=== PATIENT | female | born 1960 | race Two or more races ===

== ENCOUNTER 2024-03-28 19:54 | Emergency (ER) | payer OTHER, MEDICAID ==
[~2024-03-28] VITALS: Ht 170.2 cm; Wt 113.6 kg
[2024-03-28 20:02] VITALS: BP 121/65; PULSE 75; RESP 18; O2SAT 96
[2024-03-28] MEDS ORDERED: SODIUM CHLORIDE 0.9% 2,000 ML IV ONE (20:30)
[2024-03-28] MEDS ORDERED: ONDANSETRON HCL 4 MG/2 ML VIAL IV ONE (20:30)
[2024-03-28 21:34] LABS: Basophils # (auto) 0.1 10 ^3/uL (0-0.2); Basophils % (auto) 0.6 % (0.0-2.0); Eosinophils # (auto) 0.1 10 ^3/uL (0-0.8); Eosinophils % (auto) 0.5 % (0.0-7.0); Hematocrit 41.8 % (36.0-46.0); Hemoglobin 13.5 g/dL (12.2-16.2); Lymphocytes # (auto) 1.3 10 ^3/uL (0.4-5.4); Lymphocytes % (auto) 11.9 % (10.0-50.0); Mean Corpuscular Hemoglobin 30.2 pg (28.0-32.0); Mean Corpuscular Hgb Conc. 32.2 g/dL (32.0-36.0); Mean Corpuscular Volume 93.7 fL (80.0-100.0); Monocytes # (auto) 0.3 10 ^3/uL (0-1.3); Neutrophils # (auto) 8.9 10 ^3/uL (1.6-8.6); Platelet Count (auto) 240 10^3/uL (140-450); Red Blood Cells 4.46 10^6/uL (4.0-5.20); Red Cell Distribution Width 14.7 % (11.8-14.3); White Blood Cell 10.6 10^3/uL (4.4-10.8)
[2024-03-28] MEDS: IOHEXOL 300 MG/ML 100ML BOTTLE IJ ONE (21:56)
[2024-03-28 21:57] LABS: Alanine Aminotransferase 23 U/L (7-40); Albumin 4.5 g/dL (3.2-4.8); Alkaline Phosphatase 103 U/L (46-116); Anion Gap 11 (5-15); Aspartate Aminotransferase 22 U/L (13-40); BUN/Creatinine Ratio 22.9 (10.0-20.0); Carbon Dioxide 22 mmol/L (20-31); Chloride 106 mmol/L (98-107); Lipase 45 U/L (12-53); Sodium 139 mmol/L (136-145)
[2024-03-28 21:59] LABS: Bilirubin, Total 0.2 mg/dL (0.2-1.0); Blood Urea Nitrogen 24 mg/dL (9-23); Calcium 10.5 mg/dL (8.7-10.4); Glucose 154 mg/dL (74-106)
--- NOTE | 2024-03-29 03:27 | ED.PDOC ---
History of Present Illness HPI Comments 63 y/o F, with a Hx of HLD, HTN, UTI's, TBI, kidney stones, and obesity, is BIBA for c/o non-radiating, diffused abdominal pain, nausea, and vomiting, today. Per EMS report, patient is a poor historian and her sister/oracle apex developer called on her behalf, due to sudden and unprovoked onset of abdominal pain and nausea 30x minutes prior to arrival to ED. Upon arrival to ED, patient is stated to vomited 1x. She has no reported hematemesis, diarrhea, constipation, fever, chills, or other associated symptoms or modifiers at this time. On scene and en route, patient was also noted to have had a blood glucose of 122 and vitals stable and within normal limits. Chief Complaint: Abdominal Pain Time Seen by MD: 20:25 Reviewed Notes: Nurses Notes, Teletypesetter Monitor Notes, Medications, Allergies Allergies: Coded Allergies: Penicillins (Verified Allergy, Unknown, 03/28/24) Information Source: Patient, Emergency Med Personnel Mode of Arrival: EMS Severity: Moderate Timing: Minutes Duration: Since onset Prehospital treatment: 12 Lead EKG, Sisal Picker Past Medical History PAST MEDICAL HISTORY: Depression, High Lipids, HTN, Kidney Stones, UTI'S Past Medical History (Other): obesity, TBI Surgical History: Denies all surgeries Family History Family History: Unknown Social History Smoker: Non-Smoker Alcohol: Denies ETOH Use Drugs: Denies Drug Use Lives In: Home, Assisted Care Gastrointestinal: reports: abdominal pain, nausea, vomiting All Other Systems: Reviewed and Negative (negative unless otherwise stated above or in HPI) Physical Exam General Appearance: Moderate Distress, Obese HEENT: Normal ENT Inspection, Pharynx Normal, TMs Normal Neck: Full Range of Motion, Non-Tender, Normal, Normal Inspection Respiratory: Chest Non-Tender, Lungs Clear, No Accessory Muscle Use, No Respiratory Distress, Normal Breath Sounds Cardiovascular: No Edema, No JVD, No Murmur, No Gallop, Normal Peripheral Pulses, Regular Rate/Rhythm Breast Exam: Deferred Gastrointestinal: Diffuse (tenderness ), No Organomegaly, No Pulsatile Mass, Normal Bowel Sounds, Soft, Tenderness (diffused ) Genitalia: Deferred Pelvic: Deferred Rectal: Deferred Extremities: No calf tenderness, Normal capillary refill, Normal inspection, Normal range of motion, Non-tender, No pedal edema Musculoskeletal : Apperance: Normal Neurologic: Alert, gas attendant II-XII nml as Tested, No Motor Deficits, Normal Affect, Normal Mood, No Sensory Deficits Cerebellar Function: Normal Reflexes: Normal Skin: Dry, Normal Color, Warm Lymphatic: No Adenopathy Was a procedure done? Was a procedure done?: No Differential Dx Considerations may include: gastritis, gastroenteritis, viral syndrome, spoiled food, acute abdomen X-Ray, Labs, Meds, VS Vital Signs Date Time Temp Pulse Resp B/P (MAP) Pulse Ox O2 Delivery O2 Flow Rate FiO2 03/28/24 20:02 97.8 75 18 121/65 (83) 96 Lab Test 03/28/24 21:06 Range/Units White Blood Count 10.6 4.4-10.8 10^3/uL Red Blood Count 4.46 4.0-5.20 10^6/uL Hemoglobin 13.5 12.2-16.2 g/dL Hematocrit 41.8 36.0-46.0 % Mean Corpuscular Volume 93.7 80.0-100.0 fL Mean Corpuscular Hemoglobin 30.2 28.0-32.0 pg Mean Corpuscular Hemoglobin Concent 32.2 32.0-36.0 g/dL Red Cell Distribution Width 14.7 H 11.8-14.3 % Platelet Count 240 140-450 10^3/uL Mean Platelet Volume 8.5 6.9-10.8 fL Neutrophils (%) (Auto) 84.0 H 37.0-80.0 % Lymphocytes (%) (Auto) 11.9 10.0-50.0 % Monocytes (%) (Auto) 3.0 0.0-12.0 % Eosinophils (%) (Auto) 0.5 0.0-7.0 % Basophils (%) (Auto) 0.6 0.0-2.0 % Neutrophils # (Auto) 8.9 H 1.6-8.6 10 ^3/uL Lymphocytes # (Auto) 1.3 0.4-5.4 10 ^3/uL Monocytes # (Auto) 0.3 0-1.3 10 ^3/uL Eosinophils # (Auto) 0.1 0-0.8 10 ^3/uL Basophils # (Auto) 0.1 0-0.2 10 ^3/uL Nucleated Red Blood Cells 0.0 % Sodium Level 139 136-145 mmol/L Potassium Level 4.0 3.5-5.1 mmol/L Chloride Level 106 98-107 mmol/L Carbon Dioxide Level 22 20-31 mmol/L Anion Gap 11 5-15 Blood Urea Nitrogen 24 H 9-23 mg/dL Creatinine 1.05 H 0.550-1.02 mg/dL Glomerular Filtration Rate Calc 59 >90 mL/min BUN/Creatinine Ratio 22.9 H 10.0-20.0 Serum Glucose 154 H 74-106 mg/dL Lactic Acid Level 1.2 0.4-2.0 mmol/L Calcium Level 10.5 H 8.7-10.4 mg/dL Total Bilirubin 0.2 0.2-1.0 mg/dL Aspartate Amino Transferase (AST) 22 13-40 U/L Alanine Aminotransferase (ALT) 23 7-40 U/L Alkaline Phosphatase 103 46-116 U/L Total Protein 8.0 5.7-8.2 g/dL Albumin 4.5 3.2-4.8 g/dL Lipase 45 12-53 U/L CBC is normal. BUN is 24 creatinine 1.1. Lipase is 45 The patient eloped. Time of 1ST Reevaluation: 20:55 Reevaluation 1ST: Unchanged Patient Education/Counseling: Diagnosis, Treatment Family Education/Counseling: No Family Present Departure 1 Departure Time of Disposition: 01:00 Impression: Primary Impression: Vomiting Qualified Codes: R11.10 - Vomiting, unspecified Disposition: 07 LEFT AWOL/ELOPED Condition: Guarded Written Prescriptions The patient did not sign out against medical advice. The patient eloped without notifying anyone. Reassessed patient, vital signs stable. Denies any new symptoms. Patient is able to tolerate PO and ambulate/be mobile at their baseline without concern. Risks and benefits of all medications given or prescribed, if any, discussed. All lab work, imaging and diagnostic studies were reviewed by me. The patient was counseled extensively on my clinical impression, diagnosis, expected course of the disease, and plan, including their follow-up care. Will discharge patient. Patient instructed to follow up with Primary Care Physician within 24-48 hours. Strict return precautions given for further exacerbation of symptoms or for new symptoms. The patient was given the opportunity to ask questions and all questions were answered by myself and the nursing/tech staff. Patient is in agreement with the care plan. The patient verbally expressed understanding of the discharge instructions, including the reasons to return to the Emergency Department. Discharged With: Relative Critical Care Note Critical Care Time?: No Stability Stability form required: No Heart Score Heart Score: Heart Score Response (Comments) Value History N/A 0 EKG N/A 0 Age N/A 0 Risk Factors N/A 0 Troponin N/A 0 Total 0 I personally scribed for CHETAN HUSTON MD ([email or web address]) on 03/29/24 at 03:27. Electronically submitted by Rory Richardson ([email or web address]). CHETAN HUSTON MD Mar 29, 2024 03:27
== END 2024-03-28 23:30 | disposition left against medical advice (07) ==
LOC: ER 19:54 → EDBD 19:54 → ER 23:30
DX: R11.10 Vomiting, unspecified (principal); E78.5 Hyperlipidemia, unspecified; I10 Essential (primary) hypertension; Z88.0 Allergy status to penicillin; Z87.442 Personal history of urinary calculi
CPT/HCPCS: 36415; 80053; 83605; 83690; 85025; 99283; Q9967

== ENCOUNTER 2024-06-22 07:33 | Inpatient (IN) | payer OTHER, MEDICAID ==
[~2024-06-22] VITALS: Ht 175.3 cm; Wt 118.0 kg
--- NOTE | 2024-06-22 08:03 | ED.PDOC ---
History of Present Illness HPI Comments 63 year old female presents to the ED with a chief complaint of abnormal labs onset today. Patient's sister states patient had a urine culture done 5 days ago, was told by PCP today due to urine culture results. Sister states patient gets kidney stones and UTI often, has had 11 surgeries to removal kidney stones. PMHx TBI, HTN, HLD, depression. Denies nausea, vomiting, diarrhea, chest pain, shortness of breath, headache, dizziness, fever, chills. No other symptoms or modifying factors present at this time. Time Seen by MD: 07:50 Reviewed Notes: Medications, Allergies Allergies: Coded Allergies: Penicillins (Verified Allergy, Unknown, 03/28/24) Information Source: Patient, Relative (Sibling) Mode of Arrival: Ambulatory Severity: Moderate Timing: Days Duration: Since onset Prehospital treatment: None Past Medical History PAST MEDICAL HISTORY: Depression, High Lipids, HTN, Kidney Stones, UTI'S Past Medical History (Other): TBI Surgical History (Other): LT leg surgery, kidney stones removal Family History Family History: Unknown Social History Smoker: Non-Smoker Alcohol: Denies ETOH Use Drugs: Denies Drug Use Lives In: Home, Assisted Care Constitutional: denies: chills, diaphoresis, fatigue, fever, malaise, sweats, weakness, others EENTM: denies: blurred vision, double vision, ear bleeding, ear discharge, ear drainage, ear pain, ear ringing, eye pain, eye redness, hearing loss, mouth pain, mouth swelling, nasal discharge, nose bleeding, nose congestion, nose pain, photophobia, tearing, throat pain, throat swelling, voice changes, others Respiratory: denies: cough, hemoptysis, orthopnea, SOB at rest, shortness of breath, SOB with excertion, stridor, wheezing, others Cardiovascular: denies: chest pain, dizzy spells, diaphoresis, Dyspnea on exertion, edema, irregular heart beat, left arm pain, lightheadedness, palpitations, PND, syncope, others Gastrointestinal: denies: abdomen distended, abdominal pain, blood streaked bowels, constipated, diarrhea, dysphagia, difficulty swallowing, hematemesis, melena, nausea, poor appetite, poor fluid intake, rectal bleeding, rectal pain, vomiting, others Genitourinary: denies: abnormal vagina bleeding, burning, dyspareunia, dysuria, flank pain, frequency, hematuria, incontinence, pain, , vagina discharge, urgency, others Neurological: denies: dizziness, fainting, headache, left sided numbness, left sided weakness, numbness, paresthesia, pre-existing deficit, right sided numbness, right sided weakness, seizure, speech problems, tingling, tremors, weakness, others Musculoskeletal: denies: back pain, gout, joint pain, joint swelling, muscle pain, muscle stiffness, neck pain, others Integumetry: denies: bruises, change in color, change in hair/nails, dryness, laceration, lesions, lumps, rash, wounds, others Allergic/Immunocompromised: denies: Difficulty Healing, Frequent Infections, H lynne, Itching, others Hematologic/Lymphatic: denies: anemia, blood clots, easy bleeding, easy bruising, swollen glands, others Endocrine: denies: excessive hunger, excessive sweating, excessive thirst, excessive urination, flushing, intolerance to cold, intolerance to heat, unexplained weight gain, unexplained weight loss, others Psychiatric: denies: anxiety, bipolar disorder, depression, hopeless, panic disorder, schizophrenia, sleepless, suicidal, others All Other Systems: Reviewed and Negative Physical Exam General Appearance: Moderate Distress, Obese HEENT: Normal ENT Inspection, Pharynx Normal, TMs Normal Neck: Full Range of Motion, Non-Tender, Normal, Normal Inspection Respiratory: Chest Non-Tender, Lungs Clear, No Accessory Muscle Use, No Respiratory Distress, Normal Breath Sounds Cardiovascular: No Edema, No JVD, No Murmur, No Gallop, Normal Peripheral Pulses, Regular Rate/Rhythm Breast Exam: Deferred Gastrointestinal: No Organomegaly, Non Tender, No Pulsatile Mass, Normal Bowel Sounds, Soft Genitalia: Deferred Pelvic: Deferred Rectal: Deferred Extremities: No calf tenderness, Normal capillary refill, Pedal edema Musculoskeletal : Apperance: Normal Neurologic: automatic blocker II-XII nml as Tested, Motor Weakness, Normal Affect, Normal Mood, No Sensory Deficits, Other (Patient has a traumatic brain injury so is somewhat slow to respond) Cerebellar Function: Unable to Test Reflexes: Normal Skin: Dry, Normal Color, Warm Lymphatic: No Adenopathy Was a procedure done? Was a procedure done?: No Differential Dx Considerations may include: Sepsis, UTI, abdominal pain, cholelithiasis X-Ray, Labs, Meds, VS Vital Signs Date Time Temp Pulse Resp B/P (MAP) Pulse Ox O2 Delivery O2 Flow Rate FiO2 06/22/24 08:00 97.5 60 18 151/85 (107) 97 97.5 Lab Test 06/22/24 09:06 06/22/24 08:21 Range/Units Urine Color Light-yellow Yellow Urine Clarity Turbid H Clear Urine pH 7.0 5.0-9.0 Urine Specific Curtis 1.011 1.001-1.035 Urine Protein 1+ H Negative Urine Ketones Negative Negative Urine Blood 1+ H Negative /uL Urine Nitrite 2+ H Negative Urine Bilirubin Negative Negative Urine Urobilinogen Normal Negative mg/dL Urine Leukocyte Esterase 3+ Negative /uL Urine RBC 15 0 - 4 /hpf Urine WBC Clumps Present None Seen /hpf Urine Microscopic WBC 86 H 0-5 /HPF Urine Squamous Epithelial Cells Few <5 /hpf Urine Bacteria Few H None Seen /hpf Urine Glucose Normal Normal mg/dL White Blood Count 7.5 4.4-10.8 10^3/uL Red Blood Count 4.54 4.0-5.20 10^6/uL Hemoglobin 13.8 12.2-16.2 g/dL Hematocrit 41.5 36.0-46.0 % Mean Corpuscular Volume 91.6 80.0-100.0 fL Mean Corpuscular Hemoglobin 30.3 28.0-32.0 pg Mean Corpuscular Hemoglobin Concent 33.1 32.0-36.0 g/dL Red Cell Distribution Width 13.9 11.8-14.3 % Platelet Count 257 140-450 10^3/uL Mean Platelet Volume 8.1 6.9-10.8 fL Neutrophils (%) (Auto) 63.3 37.0-80.0 % Lymphocytes (%) (Auto) 25.7 10.0-50.0 % Monocytes (%) (Auto) 7.0 0.0-12.0 % Eosinophils (%) (Auto) 2.9 0.0-7.0 % Basophils (%) (Auto) 1.1 0.0-2.0 % Neutrophils # (Auto) 4.7 1.6-8.6 10 ^3/uL Lymphocytes # (Auto) 1.9 0.4-5.4 10 ^3/uL Monocytes # (Auto) 0.5 0-1.3 10 ^3/uL Eosinophils # (Auto) 0.2 0-0.8 10 ^3/uL Basophils # (Auto) 0.1 0-0.2 10 ^3/uL Nucleated Red Blood Cells 0.1 % Sodium Level 141 136-145 mmol/L Potassium Level 4.4 3.5-5.1 mmol/L Chloride Level 107 98-107 mmol/L Carbon Dioxide Level 24 20-31 mmol/L Anion Gap 10 5-15 Blood Urea Nitrogen 13 9-23 mg/dL Creatinine 0.87 0.550-1.02 mg/dL Glomerular Filtration Rate Calc 74 >90 mL/min BUN/Creatinine Ratio 14.9 10.0-20.0 Serum Glucose 73 L 74-106 mg/dL Calcium Level 9.9 8.7-10.4 mg/dL PROCEDURE(s): ABPL - CT AB PEL WO CON-NO ORAL OR IV REASON: pain ORDER NUMBER(s): [id number], ACCESSION NUMBER(s): [id number] IMPRESSION: 1. Bilateral renal calculi. No hydronephrosis or obstructing calculi visualized. Mild stranding along the courses of the ureters bilaterally, may be sequela of inflammation or infection. Correlate with clinical findings. 2. Bilateral renal cysts. 3. Supraumbilical ventral hernia containing a loop of small bowel without evidence of obstruction. 4. Nonspecific nondilated fluid-filled small bowel loops. Findings may be seen with ileus or enteritis in the appropriate clinical setting. No small bowel obstruction. 5. Scattered colonic diverticula without adjacent inflammatory changes to suggest diverticulitis. 6. Cholelithiasis with mildly distended gallbladder. Correlate with clinical findings. If clinically indicated, ultrasound could be obtained. 7. Additional findings as described above The patient had an IV Hep-Lock established The patient was given normal saline at a 500 cc bolus. The patient was also given Levaquin IV piggyback for the UTI that was discovered The patient's CBC shows no sign of any elevated white blood cell count The chemistry panel is within normal limits The patient was being admitted to the hospitalist We did discuss the findings with the patient was family secondary to her mental status and the patient is being admitted Images Reviewed?: Images reviewed and evaluated by me Time of 1ST Reevaluation: 08:20 Reevaluation 1ST: Unchanged Patient Education/Counseling: Diagnosis, Treatment, Prognosis Family Education/Counseling: Diagnosis, Treatment, Prognosis Additional Information The following tests were ordered, and results were reviewed by me: CT ABD PEL WO CON, UA, CBC, BMP Additional Information was gathered from interviewing the following independent historians: sisters I reviewed and agreed with the following test results read by other providers: CT ABD PEL WO CON, I discussed treatment and results with medical personnel and: patient, sisters Comprehensive systems review obtained and negative except for what is stated in the HPI. Departure 1 Departure Time of Disposition: 09:54 Impression: Primary Impression: Nephrolithiasis Additional Impressions: UTI (urinary tract infection) Qualified Codes: N30.01 - Acute cystitis with hematuria Cholelithiasis Qualified Codes: K80.20 - Calculus of gallbladder without cholecystitis without obstruction Acute abdominal pain Disposition: ADMITTED INPATIENT Admit to: Med Surg Condition: Fair Critical Care Note Critical Care Time?: No Stability Stability form required: Yes Unstable for transfer: ED Physician Assesment (Clinical assesment) Heart Score Heart Score: Heart Score Response (Comments) Value History N/A 0 EKG N/A 0 Age N/A 0 Risk Factors N/A 0 Troponin N/A 0 Total 0 I personally scribed for PALMER CONN MD ([email or web address]) on 06/22/24 at 08:03. Electronically submitted by Ruby Orozco ([email or web address]). I personally scribed for PALMER CONN MD ([email or web address]) on 06/22/24 at 08:12. Electronically submitted by Ruby Orozco ([email or web address]). I personally scribed for PALMER CONN MD ([email or web address]) on 06/22/24 at 09:43. Electronically submitted by Ruby Orozco ([email or web address]). PALMER CONN MD Jun 22, 2024 08:03
[2024-06-22 08:32] LABS: Basophils # (auto) 0.1 10 ^3/uL (0-0.2); Basophils % (auto) 1.1 % (0.0-2.0); Eosinophils # (auto) 0.2 10 ^3/uL (0-0.8); Eosinophils % (auto) 2.9 % (0.0-7.0); Hematocrit 41.5 % (36.0-46.0); Hemoglobin 13.8 g/dL (12.2-16.2); Lymphocytes # (auto) 1.9 10 ^3/uL (0.4-5.4); Lymphocytes % (auto) 25.7 % (10.0-50.0); Mean Corpuscular Hemoglobin 30.3 pg (28.0-32.0); Mean Corpuscular Hgb Conc. 33.1 g/dL (32.0-36.0); Mean Corpuscular Volume 91.6 fL (80.0-100.0); Monocytes # (auto) 0.5 10 ^3/uL (0-1.3); Neutrophils # (auto) 4.7 10 ^3/uL (1.6-8.6); Neutrophils % (auto) 63.3 % (37.0-80.0); Nucleated Red Blood Cells % 0.1 %; Platelet Count (auto) 257 10^3/uL (140-450); Red Blood Cells 4.54 10^6/uL (4.0-5.20); Red Cell Distribution Width 13.9 % (11.8-14.3); White Blood Cell 7.5 10^3/uL (4.4-10.8)
[2024-06-22 08:46] LABS: BUN/Creatinine Ratio 14.9 (10.0-20.0); Blood Urea Nitrogen 13 mg/dL (9-23)
[2024-06-22 08:47] LABS: Chloride 107 mmol/L (98-107); Potassium 4.4 mmol/L (3.5-5.1); Sodium 141 mmol/L (136-145)
[2024-06-22 08:49] LABS: Anion Gap 10 (5-15)
[2024-06-22 08:53] LABS: Calcium 9.9 mg/dL (8.7-10.4); Glucose 73 mg/dL (74-106)
[2024-06-22 08:54] LABS: Carbon Dioxide 24 mmol/L (20-31)
--- NOTE | 2024-06-22 09:01 | DVH ---
CLINICAL INFORMATION: Abdominal pain. History of renal stones. TECHNIQUE: Axial CT images of the abdomen and pelvis were obtained without IV contrast. Coronal and s agittal reformatted images were obtained, reviewed, and stored. Evaluation of the parenchymal organs is limited without IV contrast. Evaluation of the bowel and mesentery is limited without oral contras t. All CT scans at this medical facility are performed using dose modulation techniques as appropriat e to a performed exam including the following: Automated exposure control was utilized; adjustment of the MA and/or KV according to patient size; and use of iterative reconstruction technique. CTDIvol = 24.77 mGy DLP = 1276.16 mGy-cm COMPARISON: None FINDINGS: Lung bases: Lung bases are clear. Liver: Grossly unremarkable in its noncontrast enhanced appearance. No abnormal density or focal lesi on identified. Biliary: Mildly distended gallbladder. Very small 3 mm calcified gallstone near the gallbladder neck. No biliary ductal dilatation. Spleen: Unremarkable. Pancreas: Grossly unremarkable in its noncontrast enhanced appearance. Adrenal glands: Unremarkable. No mass. Kidneys: No hydronephrosis. Multiple bilateral nonobstructing renal calculi. No obstructing calculi. There are bilateral renal cysts. Very mild stranding along the courses of both ureters, may be sequel a of inflammation or infectious etiology. Aorta/Vascular: No aneurysm or significant calcification. Retroperitoneum: No mass or lymphadenopathy. Bowel/mesentery: No small bowel obstruction. Nonspecific nondilated fluid-filled small bowel loops. A ppendix is visualized and appears unremarkable. Scattered colonic diverticula without adjacent infla mmatory changes to suggest diverticulitis. Postsurgical changes of prior gastric bypass. Pelvic organs: Focal calcification along the right side of the uterus, posteriorly, likely calcified fibroid measuring up to 1.8 cm. Bladder: Grossly unremarkable. Abdominal wall: Ventral hernia just above the level of the umbilicus just to the right of midline con taining a loop of small bowel without evidence for obstruction. Bones: No acute fracture or suspicious intraosseous lesion. IMPRESSION: 1. Bilateral renal calculi. No hydronephrosis or obstructing calculi visualized. Mild stranding along the courses of the ureters bilaterally, may be sequela of inflammation or infection. Correlate with clinical findings. 2. Bilateral renal cysts. 3. Supraumbilical ventral hernia containing a loop of small bowel without evidence of obstruction. 4. Nonspecific nondilated fluid-filled small bowel loops. Findings may be seen with ileus or enteriti s in the appropriate clinical setting. No small bowel obstruction. 5. Scattered colonic diverticula without adjacent inflammatory changes to suggest diverticulitis. 6. Cholelithiasis with mildly distended gallbladder. Correlate with clinical findings. If clinically indicated, ultrasound could be obtained. 7. Additional findings as described above
[2024-06-22 09:26] LABS: Urine Bacteria FEW /hpf (None Seen); Urine Blood 1+ /uL (Negative); Urine Clarity Turbid (Clear); Urine Color Light-Yellow (Yellow); Urine Protein, UAD 1+ (Negative); Urine Specific Gravity 1.011 (1.001-1.035); Urine Squamous Epithelial Cell FEW /hpf (<5); Urine Urobilinogen Normal (Negative); Urine WBC 86 /HPF (0-5); Urine WBC Clumps PRESENT /hpf (None Seen)
[2024-06-22 10:38] VITALS: PULSE 91; RESP 18; O2SAT 99
[2024-06-22] MEDS: levoFLOXacin 500MG 100 ML IV ONE (10:48)
[2024-06-22] MEDS: SODIUM CHLORIDE 0.9% 500 ML IV ONE (10:48)
[2024-06-22] MEDS ORDERED: NITROGLYCERIN 0.4 MG SL TAB SL PRN (16:45)
[2024-06-22] MEDS ORDERED: MORPHINE SULFATE INJ 2 MG/ml SYRG IV PRN (16:45)
--- NOTE | 2024-06-22 17:11 | DVHHPRES ---
History of Present Illness Resident Creating Document: ALEXANDR HAYWARD RESIDENT History of Present Illness PATIENT IS A 63-YEAR-OLD FEMALE WITH PAST MEDICAL HISTORY OF HYPERTENSION, HYPERTENSION, HYPERLIPIDEMIA, TRAUMATIC BRAIN INJURY, DEPRESSION, MULTIPLE UTIS, RENAL CALCULI WHO PRESENTED WITH THE HOSPITAL AFTER PRIMARY CARE PHYSICIAN SUGGESTED PATIENT BROUGHT TO THE HOSPITAL GIVEN ABNORMAL URINARY CULTURE AND URINALYSIS RESULTS. ALL INFORMATION OBTAINED FROM SISTER/CAREGIVER GIVEN PATIENT HAS SHORT-TERM MEMORY LOSS AFTER TRAUMATIC BRAIN INJURY. PATIENT DOES NOT HAVE ANY OCCLUSION BRAIN GOING FEVER, CHILLS, ABDOMINAL PAIN, CHEST PAIN, SHORTNESS OF BREATH, ANY OTHER SYMPTOM. PATIENT IS WHEELCHAIR-BOUND , CAN AMBULATE WITH CANE. NO ANY OTHER NEW COMPLAINTS. PATIENT WILL BE ADMITTED TO THE HOSPITAL FOR FURTHER EVALUATION OF URINARY TRACT INFECTION AND MANAGEMENT. PAST MEDICAL HISTORY: MULTIPLE RENAL CALCULI, UTIS, HYPERTENSION, HYPERLIPIDEMIA, TRAUMATIC BRAIN INJURY, DEPRESSION SURGERY: MULTIPLE RENAL CALCULI SURGERY PER PATIENT, STATUS POST NEPHROSTOMY, HISTORY OF CHRONIC [place] USE, GASTRIC BYPASS, , TUBAL LIGATION ALLERGY: PENICILLIN PERSONALLY: PATIENT LIVES WITH SISTER, SISTER IS CAREGIVER. Review of Systems Constitutional: No: Fever, Chills, Sweats, Weakness, Malaise, Other Eyes: No: Pain, Vision change, Conjunctivae inflammation, Eyelid inflammation, Other, Redness ENT: No: Ear pain, Ear discharge, Nose pain, Nose discharge, Nose congestion, Mouth pain, Mouth swelling, Throat pain, Throat swelling, Other Respiratory: No: Cough, Dry, Shortness of breath, SOB with excertion, Wheezing, Hemoptysis, Pleuritic Pain, Sputum, Wheezing, Other Cardiovascular: No: Chest Pain, Palpitations, Orthopnea, Paroxysmal Noc. Dyspnea, Edema, Lt Headedness, Other Gastrointestinal: No: Nausea, Vomiting, Abdominal Pain, Diarrhea, Constipation, Melena, Hematochezia, Other Musculoskeletal: No: other, neck pain, shoulder pain, arm pain, back pain, hand pain, leg pain, foot pain Skin: No: Rash, Lesions, Jaundice, Bruising, Other Neurological: No: Weakness, Numbness, Incoordination, Change in speech, Confusion, Seizures, Other Allergies: Coded Allergies: Penicillins (Verified Allergy, Unknown, 03/28/24) Medications Current Medications Medications Dose Ordered Sig/Monisha Route Start Time Stop Time Status Last Admin Dose Admin Nitroglycerin 0.4 mg Q5MINP PRN SL 4/29/25 16:45 Morphine Sulfate 2 mg Q30M PRN IV 06/22/24 16:45 Enoxaparin Sodium 40 mg DAILY SC 06/23/24 10:00 Sertraline HCl 150 mg DAILY PO 06/23/24 10:00 Metoprolol Tartrate 12.5 mg BID PO 06/22/24 22:00 Quetiapine Fumarate 25 mg BID PO 06/22/24 22:00 Atorvastatin Calcium 20 mg HS PO 06/22/24 22:00 Amlodipine Besylate 10 mg DAILY PO 06/23/24 10:00 Exam Vital Signs Vital Signs Date Time Temp Pulse Resp B/P (MAP) Pulse Ox O2 Delivery O2 Flow Rate FiO2 06/22/24 15:54 73 18 113/62 (79) 96 06/22/24 10:38 Room Air* 0 21 06/22/24 08:00 97.5 97.5 General Appearance: Alert, Cooperative, No acute distress HEENT: PERRLA, Mucous membr. moist/pink Respiratory: Clear to auscultation, Normal air movement Cardiovascular: Normal S1, Normal S2 Abdominal: Normal bowel sounds, Soft, No tenderness Extremities: No clubbing, No cyanosis, No edema Skin: No rashes, No breakdown, No significant lesion Neuro: Normal gait, Normal speech, Strength at 5/5 X4 ext Labs/Xrays Labs Test 06/22/24 09:06 06/22/24 08:21 Range/Units Urine Color Light-yellow Yellow Urine Clarity Turbid H Clear Urine pH 7.0 5.0-9.0 Urine Specific [place] 1.011 1.001-1.035 Urine Protein 1+ H Negative Urine Ketones Negative Negative Urine Blood 1+ H Negative /uL Urine Nitrite 2+ H Negative Urine Bilirubin Negative Negative Urine Urobilinogen Normal Negative mg/dL Urine Leukocyte Esterase 3+ Negative /uL Urine RBC 15 0 - 4 /hpf Urine WBC Clumps Present None Seen /hpf Urine Microscopic WBC 86 H 0-5 /HPF Urine Squamous Epithelial Cells Few <5 /hpf Urine Bacteria Few H None Seen /hpf Urine Glucose Normal Normal mg/dL White Blood Count 7.5 4.4-10.8 10^3/uL Red Blood Count 4.54 4.0-5.20 10^6/uL Hemoglobin 13.8 12.2-16.2 g/dL Hematocrit 41.5 36.0-46.0 % Mean Corpuscular Volume 91.6 80.0-100.0 fL Mean Corpuscular Hemoglobin 30.3 28.0-32.0 pg Mean Corpuscular Hemoglobin Concent 33.1 32.0-36.0 g/dL Red Cell Distribution Width 13.9 11.8-14.3 % Platelet Count 257 140-450 10^3/uL Mean Platelet Volume 8.1 6.9-10.8 fL Neutrophils (%) (Auto) 63.3 37.0-80.0 % Lymphocytes (%) (Auto) 25.7 10.0-50.0 % Monocytes (%) (Auto) 7.0 0.0-12.0 % Eosinophils (%) (Auto) 2.9 0.0-7.0 % Basophils (%) (Auto) 1.1 0.0-2.0 % Neutrophils # (Auto) 4.7 1.6-8.6 10 ^3/uL Lymphocytes # (Auto) 1.9 0.4-5.4 10 ^3/uL Monocytes # (Auto) 0.5 0-1.3 10 ^3/uL Eosinophils # (Auto) 0.2 0-0.8 10 ^3/uL Basophils # (Auto) 0.1 0-0.2 10 ^3/uL Nucleated Red Blood Cells 0.1 % Sodium Level 141 136-145 mmol/L Potassium Level 4.4 3.5-5.1 mmol/L Chloride Level 107 98-107 mmol/L Carbon Dioxide Level 24 20-31 mmol/L Anion Gap 10 5-15 Blood Urea Nitrogen 13 9-23 mg/dL Creatinine 0.87 0.550-1.02 mg/dL Glomerular Filtration Rate Calc 74 >90 mL/min BUN/Creatinine Ratio 14.9 10.0-20.0 Serum Glucose 73 L 74-106 mg/dL Calcium Level 9.9 8.7-10.4 mg/dL Assessment/Plan Assessment/Plan ACUTE CYSTITIS MULTIPLE BILATERAL RENAL CALCULI DIVERTICULOSIS WITHOUT DIVERTICULITIS CHOLELITHIASIS ? RULED OUT ACUTE CHOLECYSTITIS RENAL CYST HYPERTENSION HYPERLIPIDEMIA DEPRESSION RIGHT-SIDED RESIDUAL WEAKNESS HISTORY OF TRAUMATIC BRAIN INJURY LACTOSE INTOLERANCE PLAN/RECOMMENDATION -CONTINUED IV ANTIBIOTIC LEVOFLOXACIN (PENICILLIN ALLERGY), IV FLUID NORMAL SALINE 100 ML/HOUR. -PENDING URINE CULTURE AND BLOOD CULTURE. -CHECK LIVER ULTRASOUND -EKG TO CHECK QTC GIVEN PATIENT IS RECEIVING LEVOFLOXACIN -CT ABDOMEN PELVIS REVIEWED: MULTIPLE BILATERAL RENAL CALCULI, CHOLELITHIASIS, DIVERTICULOSIS, ADENOSIS -RESUME HOME MEDICATION: AMLODIPINE, METOPROLOL, QUETIAPINE, SERTRALINE, ATORVASTATIN -WHEELCHAIR-BOUND, CAN AMBULATE WITH CANE. WE WILL NEED BEDSIDE COMMODE -CARDIAC DIET -DVT PROPHYLAXIS WITH LOVENOX -PUD PROPHYLAXIS WITH PROTONIX GOALS OF CARE DISCUSSED FOR 20 MINUTES WITH PATIENT AND HER SISTER/CAREGIVER, FULL CODE STATUS. PLAN DISCUSSED WITH DR ALVES Plan discussed with: Patient, Other (SISTER IMTIAZ) My Orders Orders - ALEXANDR HAYWARD RESIDENT Procedure Category Date Status Time Admit ADMIT 06/22/24 Transmitted 16:43 Code Status CODE 06/22/24 Transmitted 16:43 Vital Signs [facility] 06/22/24 In Process 16:43 Review Orders With [facility] 06/22/24 In Process Adm. 16:43 Notify Md Of Changes [facility] 06/22/24 In Process From Base 16:43 Advance Directive [facility] 06/22/24 In Process 16:43 Patient Condition ORDERS 06/22/24 Transmitted 16:43 Allergies [facility] 06/22/24 In Process 16:43 Nitroglycerin PHA 06/22/24 In Process Sublingual (Ntrostat 16:45 Morphine Sulfate PHA 06/22/24 In Process Injection 16:45 Sodium Chloride 0.9% PHA 06/22/24 In Process 16:45 Levofloxacin 500mg PHA 06/23/24 Logged (Levaquin 500mg/ 100m 10:00 Urine Bacterial GUSTABO 06/22/24 Logged Culture 16:43 Enoxaparin Sodium PHA 06/23/24 In Process (Lovenox) 10:00 Sertraline Hcl PHA 06/23/24 In Process (Zoloft) 10:00 Metoprolol Tartrate PHA 06/22/24 In Process Tablet (Lopressor Ta 22:00 Quetiapine Fumarate PHA 06/22/24 In Process Tablet (Seroquel Tab 22:00 Atorvastatin (Lipitor) PHA 06/22/24 In Process 22:00 Bedside Commode [facility] 06/22/24 In Process 16:50 Amlodipine Tablet PHA 06/23/24 In Process (Norvasc Tablet) 10:00 Addendum Addendum Addendum I was physically present for the rangel portions of the service provided to patient by THE RESIDENT. I have reviewed the documentation, discussed the case with resident and agree with the resident's documentation except as noted. Also the patient's clinical case was discussed with the patient's nurse. This medical document was created using an electronic medical record system with computerized dictation system. Although this document has been carefully reviewed, there might still be some phonetic and typographical errors. These areas are purely typographical due to imperfections of the software programs, and do not reflect any compromise in the patient's medical care. Late signature. Date of Service: Jun 22, 2024 Billing Provider: GAVIN ALVES MD Common Visit Codes: 30229-TEBPVZS INP/OBS CARE (HIGH) Secondary Visit Codes: 87503-[id number] CARE PLAN 30 MINUTES (20 minutes) ALEXANDR HAYWARD RESIDENT Jun 22, 2024 17:11 GAVIN ALVES MD Jun 23, 2024 10:12
[2024-06-22] MEDS: ENOXAPARIN SOD 40 MG/0.4 ML SYRINGE SC ONE (17:18)
[2024-06-22 21:00] VITALS: BP 101/81; PULSE 70; RESP 18; TEMP 98.6; O2SAT 98
--- NOTE | 2024-06-22 21:02 | DVH ---
INDICATION: distented gallbladder, sludge TECHNIQUE: US LIVER Multiple real-time sonographic images of the abdomen were obtained. COMPARISON: None FINDINGS: Increased echogenicity of the hepatic parenchyma suggesting steatosis. The liver measures 17.1 cm. No intrahepatic biliary ductal dilatation is noted. The gallbladder wall measures 0.25 cm and is unremarkable. Stones and sludge are noted in the gallb ladder. The common duct measures 0.93 cm cm and is unremarkable. No pericholecystic fluid is noted. Negative sonographic avalos's sign. The right kidney measures 12.6 cm. No hydronephrosis. 2 nonobstructing calculi noted in the right ki dney. 1 calculus measures 1.5 cm the 2nd calculus measures 1.4 cm. There is also a 2.8 cm cyst in the right kidney. The pancreas is not well visualized due to obscuration from bowel gas. IMPRESSION: 1. Stones and sludge noted in the gallbladder. 2. Liver measures 17.1 cm in length with findings suggesting steatosis. 3. 2 nonobstructing calculi right kidney. 1 cyst in the right kidney.
[2024-06-22] MEDS: SODIUM CHLORIDE 0.9% 1,000 ML IV ONE (21:09)
[2024-06-22 21:30] VITALS: BP 101/81; PULSE 74; RESP 18; RESP 20; TEMP 98.7; O2SAT 95
[2024-06-22] MEDS: METOPROLOL TARTRATE 25 MG TAB PO SCH (22:04)
[2024-06-22] MEDS: ATORVASTATIN 20 MG TAB PO SCH (22:05)
[2024-06-22] MEDS: QUEtiapine FUMARATE 25 MG TAB PO SCH (22:05)
[2024-06-22] MEDS ORDERED: ATOR20TA50 PO (22:59)
[2024-06-22] MEDS ORDERED: MULT-1018 PO (22:59)
[2024-06-22] MEDS ORDERED: CHOL20007 PO (22:59)
[2024-06-22] MEDS ORDERED: [UNRECOGNIZED DRUG - CODE] PO (22:59)
[2024-06-22] MEDS ORDERED: POTA-36 PO (22:59)
[2024-06-22] MEDS ORDERED: SIME80CH49 PO (22:59)
[2024-06-22] MEDS ORDERED: SERT-160 PO (22:59)
[2024-06-22] MEDS ORDERED: QUET50TA PO (22:59)
[2024-06-22] MEDS ORDERED: OMEG-109 PO (22:59)
[2024-06-22] MEDS ORDERED: AMLO1TAB23 PO (22:59)
[2024-06-22] MEDS ORDERED: METO25TA93 PO (22:59)
[2024-06-23] VITALS (7 sets, daily range): BP systolic 106–131; BP diastolic 34–80; PULSE 60–73; RESP 16–18; TEMP 97.7–98.7; O2SAT 93–99
[2024-06-23 10:41] LABS: Basophils # (auto) 0.1 10 ^3/uL (0-0.2); Eosinophils # (auto) 0.1 10 ^3/uL (0-0.8); Hematocrit 45.4 % (36.0-46.0); Hemoglobin 14.9 g/dL (12.2-16.2); Lymphocytes # (auto) 1.6 10 ^3/uL (0.4-5.4); Lymphocytes % (auto) 30.2 % (10.0-50.0); Mean Corpuscular Hemoglobin 30.2 pg (28.0-32.0); Mean Corpuscular Hgb Conc. 32.8 g/dL (32.0-36.0); Mean Corpuscular Volume 92.3 fL (80.0-100.0); Monocytes # (auto) 0.3 10 ^3/uL (0-1.3); Monocytes % (auto) 6.5 % (0.0-12.0); Neutrophils # (auto) 3.2 10 ^3/uL (1.6-8.6); Neutrophils % (auto) 60.3 % (37.0-80.0); Nucleated Red Blood Cells % 0.2 %; Platelet Count (auto) 253 10^3/uL (140-450); Red Blood Cells 4.92 10^6/uL (4.0-5.20); Red Cell Distribution Width 13.9 % (11.8-14.3); White Blood Cell 5.3 10^3/uL (4.4-10.8)
[2024-06-23] MEDS: amLODIPine BESYLATE 5 MG TAB PO SCH (10:43)
[2024-06-23] MEDS: SERTRALINE HCL 50 MG TAB PO SCH (10:44)
[2024-06-23] MEDS: ENOXAPARIN SOD 40 MG/0.4 ML SYRINGE SC SCH (10:45)
[2024-06-23] MEDS: levoFLOXacin 500MG 100 ML IV ONE (12:53)
--- NOTE | 2024-06-23 14:04 | DVHPNRES ---
Progress Note Date Seen: Jun 23, 2024 Resident Creating Document: ALEXANDR HAYWARD RESIDENT Medical Necessity Reason Pt with a Central, PICC or Fol: No Subjective Review of Systems PATIENT IS A 63-YEAR-OLD FEMALE WITH PAST MEDICAL HISTORY OF HYPERTENSION, HYPERTENSION, HYPERLIPIDEMIA, TRAUMATIC BRAIN INJURY, DEPRESSION, MULTIPLE UTIS, RENAL CALCULI WHO PRESENTED WITH THE HOSPITAL AFTER PRIMARY CARE PHYSICIAN SUGGESTED PATIENT BROUGHT TO THE HOSPITAL GIVEN ABNORMAL URINARY CULTURE AND URINALYSIS RESULTS. ALL INFORMATION OBTAINED FROM SISTER/CAREGIVER GIVEN PATIENT HAS SHORT-TERM MEMORY LOSS AFTER TRAUMATIC BRAIN INJURY. PATIENT DOES NOT HAVE ANY OCCLUSION BRAIN GOING FEVER, CHILLS, ABDOMINAL PAIN, CHEST PAIN, SHORTNESS OF BREATH, ANY OTHER SYMPTOM. PATIENT IS WHEELCHAIR-BOUND , CAN AMBULATE WITH CANE. NO ANY OTHER NEW COMPLAINTS. PATIENT WILL BE ADMITTED TO THE HOSPITAL FOR FURTHER EVALUATION OF URINARY TRACT INFECTION AND MANAGEMENT. PAST MEDICAL HISTORY: MULTIPLE RENAL CALCULI, UTIS, HYPERTENSION, HYPERLIPIDEMIA, TRAUMATIC BRAIN INJURY, DEPRESSION SURGERY: MULTIPLE RENAL CALCULI SURGERY PER PATIENT, STATUS POST NEPHROSTOMY, HISTORY OF CHRONIC [place] USE, GASTRIC BYPASS, , TUBAL LIGATION ALLERGY: PENICILLIN PERSONALLY: PATIENT LIVES WITH SISTER, SISTER IS CAREGIVER. Patient seen and examined at bedside. No new complaints at this point. feeling better compare to yesterday ROS Eyes: No Pain, No Vision change, No Conjunctivae inflammation, No Eyelid inflammation, No Other, No Redness ENT: No Ear pain, No Ear discharge, No Nose pain, No Nose discharge, No Nose congestion, No Mouth pain, No Mouth swelling, No Throat pain, No Throat swelling, No Other Cardiovascular: No Chest Pain, No Palpitations, No Orthopnea, No Paroxysmal Noc. Dyspnea, No Edema, No Lt Headedness, No Other Respiratory: No Cough, No Dry, No Shortness of breath, No SOB with excertion, No Wheezing, No Hemoptysis, No Pleuritic Pain, No Sputum, No Other Gastrointestinal: No Nausea, No Vomiting, No Abdominal Pain, No Diarrhea, No Constipation, No Melena, No Hematochezia, No Other Genitourinary: No Dysuria, No Frequency, No Incontinence, No Hematuria, No Retention, No Other Musculoskeletal: No other, No neck pain, No shoulder pain, No arm pain, No back pain, No hand pain, No leg pain, No foot pain Skin: No Rash, No Lesions, No Jaundice, No Bruising, No Other Objective vital signs Vital Sign Date Time Temp Pulse Resp B/P (MAP) Pulse Ox O2 Delivery O2 Flow Rate FiO2 06/23/24 11:45 61 151/83 06/23/24 09:00 97.7 17 98 97.7 06/23/24 08:00 Room Air* 0 21 Total Intake and Output 06/22/24 06/22/24 06/23/24 15:00 23:00 07:00 Intake Total 400 ml Output Total 300 ml Balance 100 ml medications Current Medications Medications Dose Ordered Sig/Monisha Route Start Time Stop Time Status Last Admin Dose Admin Nitroglycerin 0.4 mg Q5MINP PRN SL 06/22/24 16:45 Morphine Sulfate 2 mg Q30M PRN IV 06/22/24 16:45 Enoxaparin Sodium 40 mg DAILY SC 06/23/24 10:00 06/23/24 10:45 40 MG Sertraline HCl 150 mg DAILY PO 06/23/24 10:00 06/23/24 10:44 150 MG Metoprolol Tartrate 12.5 mg BID PO 06/22/24 22:00 06/23/24 10:45 12.5 MG Quetiapine Fumarate 25 mg BID PO 06/22/24 22:00 06/23/24 10:42 25 MG Atorvastatin Calcium 20 mg HS PO 06/22/24 22:00 06/22/24 22:05 20 MG Amlodipine Besylate 10 mg DAILY PO 06/23/24 10:00 06/23/24 10:43 10 MG Examination General Appearance: Alert, Cooperative, No acute distress HEENT: PERRLA, Mucous membr. moist/pink Respiratory: Clear to auscultation, Normal air movement Cardiovascular: Normal S1, Normal S2 Abdominal: Normal bowel sounds, Soft, No tenderness Extremities: No clubbing, No cyanosis, No edema Skin: No rashes, No breakdown, No significant lesion Neuro: Normal gait, Normal speech, Strength at 5/5 X4 ext laboratory and microbiology Laboratory Tests 06/23/24 10:08 06/22/24 08:21 Test 06/22/24 08:21 Range/Units Serum Glucose 73 L 74-106 mg/dL Labs and/or images reviewed: Labs reviewed by me, Image(s) reviewed by me Problem List/Assessment/Plan Problem List/Assessment/Plan ACUTE CYSTITIS MULTIPLE BILATERAL RENAL CALCULI -IV antibiotic levofloxacin -IV fluid normal saline 100 mL/hour -pending urine culture and blood culture -EKG to check QTC -CT ABDOMEN PELVIS REVIEWED: MULTIPLE BILATERAL RENAL CALCULI, CHOLELITHIASIS, DIVERTICULOSIS, ADENOSIS DIVERTICULOSIS WITHOUT DIVERTICULITIS -advice on high fiber diet and water intake CHOLELITHIASIS RULED OUT ACUTE CHOLECYSTITIS -Liver US:Stones and sludge noted in the gallbladder. Hepatic steatosis -Stable, minitor liver function RENAL CYST -Stable HYPERTENSION -RESUME HOME MEDICATION: AMLODIPINE, METOPROLOL, -CARDIAC DIET HYPERLIPIDEMIA -ATORVASTATIN 20 mg po daily DEPRESSION QUETIAPINE, SERTRALINE, RIGHT-SIDED RESIDUAL WEAKNESS HISTORY OF TRAUMATIC BRAIN INJURY -No acute change -WHEELCHAIR-BOUND, CAN AMBULATE WITH CANE. WE WILL NEED BEDSIDE COMMODE LACTOSE INTOLERANCE -nutritional consultation -DVT PROPHYLAXIS WITH LOVENOX -PUD PROPHYLAXIS WITH PROTONIX PLAN DISCUSSED WITH DR. ALVES Plan discussed with: Patient, Other (RN) My Orders My Orders Orders - ALEXANDR HAYWARD Procedure Category Date Status Time Admit ADMIT 06/22/24 Transmitted 16:43 Code Status CODE 06/22/24 Transmitted 16:43 Vital Signs [facility] 06/22/24 In Process 16:43 Review Orders With [facility] 06/22/24 In Process Adm. 16:43 Notify Md Of Changes [facility] 06/22/24 In Process From Base 16:43 Advance Directive [facility] 06/22/24 In Process 16:43 Patient Condition ORDERS 06/22/24 Transmitted 16:43 Allergies [facility]RIS 06/22/24 In Process 16:43 Nitroglycerin PHA 06/22/24 In Process Sublingual (Ntrostat 16:45 Morphine Sulfate PHA 06/22/24 In Process Injection 16:45 Enoxaparin Sodium PHA 06/23/24 In Process (Lovenox) 10:00 Sertraline Hcl PHA 06/23/24 In Process (Zoloft) 10:00 Metoprolol Tartrate PHA 06/22/24 In Process Tablet (Lopressor Ta 22:00 Quetiapine Fumarate PHA 06/22/24 In Process Tablet (Seroquel Tab 22:00 Atorvastatin (Lipitor) PHA 06/22/24 In Process 22:00 Bedside Commode [facility] 06/22/24 In Process 16:50 Amlodipine Tablet PHA 06/23/24 In Process (Norvasc Tablet) 10:00 Electrocardigram EKG 06/22/24 Logged 17:11 Blood Culture GUSTABO 06/22/24 In Process 17:11 Consult For Nutrition NOURISH 06/22/24 Transmitted 17:12 LIVER US 06/22/24 Resulted 17:27 Urine Bacterial GUSTABO 06/23/24 In Process Culture 07:38 Addendum Addendum Addendum I was physically present for the rangel portions of the service provided to patient by THE RESIDENT. I have reviewed the documentation, discussed the case with resident and agree with the resident's documentation except as noted. Also the patient's clinical case was discussed with the patient's nurse. This medical document was created using an electronic medical record system with computerized dictation system. Although this document has been carefully reviewed, there might still be some phonetic and typographical errors. These areas are purely typographical due to imperfections of the software programs, and do not reflect any compromise in the patient's medical care. Late signature. Date of Service: Jun 23, 2024 Billing Provider: GAVIN ALVES MD Common Visit Codes: [id number] INP/OBS CARE(HIGH) ALEXANDR HAYWARD RESIDENT Jun 23, 2024 14:04 GAVIN ALVES MD June 24, 2024 07:06
[2024-06-23 15:07] LABS: Triglycerides 62 mg/dL (< 150)
[2024-06-23 15:08] LABS: LDL Cholesterol 80 mg/dL (< 100)
[2024-06-23 15:09] LABS: Cholesterol 176 mg/dL (< 200)
[2024-06-23 15:10] LABS: HDL Cholesterol 80 mg/dL (40-59)
[2024-06-23 15:53] LABS: Folate (Folic Acid) 34.9 ng/mL (>5.38)
[2024-06-24 01:22] VITALS: BP 139/84; PULSE 69; RESP 17; TEMP 98.6; O2SAT 96
[2024-06-24 05:20] VITALS: BP 131/67; PULSE 65; RESP 18; TEMP 98.7; O2SAT 96
[2024-06-24 08:15] VITALS: RESP 16
[2024-06-24 09:00] VITALS: BP 126/72; PULSE 64; RESP 18; TEMP 97.5; O2SAT 98
[2024-06-24] MEDS: levoFLOXacin 500MG 100 ML IV SCH (10:25)
[2024-06-24] MEDS ORDERED: CIP500T GT (11:35)
--- NOTE | 2024-06-24 11:37 | DVHDS2 ---
Discharge Summary Date of Admission Jun 22, 2024 at 16:43 Date of Discharge: June 24, 2024 Labs/Diagnostic Data: Laboratory Results Test 06/23/24 10:08 06/22/24 09:06 06/22/24 08:21 White Blood Count 5.3 10^3/uL (4.4-10.8) Red Blood Count 4.92 10^6/uL (4.0-5.20) Hemoglobin 14.9 g/dL (12.2-16.2) Hematocrit 45.4 % (36.0-46.0) Mean Corpuscular Volume 92.3 fL (80.0-100.0) Mean Corpuscular Hemoglobin 30.2 pg (28.0-32.0) Mean Corpuscular Hemoglobin Concent 32.8 g/dL (32.0-36.0) Red Cell Distribution Width 13.9 % (11.8-14.3) Platelet Count 253 10^3/uL (140-450) Mean Platelet Volume 8.2 fL (6.9-10.8) Neutrophils (%) (Auto) 60.3 % (37.0-80.0) Lymphocytes (%) (Auto) 30.2 % (10.0-50.0) Monocytes (%) (Auto) 6.5 % (0.0-12.0) Eosinophils (%) (Auto) 2.0 % (0.0-7.0) Basophils (%) (Auto) 1.0 % (0.0-2.0) Neutrophils # (Auto) 3.2 10 ^3/uL (1.6-8.6) Lymphocytes # (Auto) 1.6 10 ^3/uL (0.4-5.4) Monocytes # (Auto) 0.3 10 ^3/uL (0-1.3) Eosinophils # (Auto) 0.1 10 ^3/uL (0-0.8) Basophils # (Auto) 0.1 10 ^3/uL (0-0.2) Nucleated Red Blood Cells 0.2 % Hemoglobin A1c 5.5 % A1C (<5.7) Triglycerides Level 62 mg/dL (< 150) Cholesterol Level 176 mg/dL (< 200) LDL Cholesterol 80 mg/dL (< 100) HDL Cholesterol 80 mg/dL (40-59) Vitamin B12 Level 717 pg/mL (211-911) Folic Acid 34.90 ng/mL (>5.38) Thyroid Stimulating Hormone (TSH) 2.85 uIU/mL (0.55-4.78) Urine Color Light-yellow (Yellow) Urine Clarity Turbid (Clear) Urine pH 7.0 (5.0-9.0) Urine Specific [place] 1.011 (1.001-1.035) Urine Protein 1+ (Negative) Urine Ketones Negative (Negative) Urine Blood 1+ /uL (Negative) Urine Nitrite 2+ (Negative) Urine Bilirubin Negative (Negative) Urine Urobilinogen Normal mg/dL (Negative) Urine Leukocyte Esterase 3+ /uL (Negative) Urine RBC 15 /hpf (0 - 4) Urine WBC Clumps Present /hpf (None Seen) Urine Microscopic WBC 86 /HPF (0-5) Urine Squamous Epithelial Cells Few /hpf (<5) Urine Bacteria Few /hpf (None Seen) Urine Glucose Normal mg/dL (Normal) Sodium Level 141 mmol/L (136-145) Potassium Level 4.4 mmol/L (3.5-5.1) Chloride Level 107 mmol/L (98-107) Carbon Dioxide Level 24 mmol/L (20-31) Anion Gap 10 (5-15) Blood Urea Nitrogen 13 mg/dL (9-23) Creatinine 0.87 mg/dL (0.550-1.02) Glomerular Filtration Rate Calc 74 mL/min (>90) BUN/Creatinine Ratio 14.9 (10.0-20.0) Serum Glucose 73 mg/dL (74-106) Calcium Level 9.9 mg/dL (8.7-10.4) Other Laboratory Tests 06/23/24 10:08 06/22/24 08:21 Brief Hx & Hospital Course: PATIENT IS A 63-YEAR-OLD FEMALE WITH PAST MEDICAL HISTORY OF HYPERTENSION, HYPERTENSION, HYPERLIPIDEMIA, TRAUMATIC BRAIN INJURY, DEPRESSION, MULTIPLE UTIS, RENAL CALCULI WHO PRESENTED WITH THE HOSPITAL AFTER PRIMARY CARE PHYSICIAN SUGGESTED PATIENT BROUGHT TO THE HOSPITAL GIVEN ABNORMAL URINARY CULTURE AND URINALYSIS RESULTS. ALL INFORMATION OBTAINED FROM SISTER/CAREGIVER GIVEN PATIENT HAS SHORT-TERM MEMORY LOSS AFTER TRAUMATIC BRAIN INJURY. PATIENT DOES NOT HAVE ANY OCCLUSION BRAIN GOING FEVER, CHILLS, ABDOMINAL PAIN, CHEST PAIN, SHORTNESS OF BREATH, ANY OTHER SYMPTOM. PATIENT IS WHEELCHAIR-BOUND , CAN AMBULATE WITH CANE. NO ANY OTHER NEW COMPLAINTS. PATIENT WILL BE ADMITTED TO THE HOSPITAL FOR FURTHER EVALUATION OF URINARY TRACT INFECTION AND MANAGEMENT. Urine and blood cx negative on IV abx and sent home on oral abx Condition at Discharge: Good Final Diagnosis/Problems List UTI Ureteral stones Discharge Disposition: Home Discharge Instruct/Medications Diet: Regular Activity: No Restrictions, As Tolerated Follow Up/Referral: PCP in 7 days Medications: Ciprofloxacin Home medications Discharge Statement: "Patient was advised to return to the ER or call 911 if any headaches, dizziness, shortness of breath, chest pain, abdominal pain, bleeding, fevers, or worsening of medical condition. Patient was counseled about treatment plan, medications, possible side effects, patientverbalized understanding. All questions were answered to the best of my ability. This discharge took greater then 30 minutes in planning, reviewing documentation, counseling the patient, and discussing with other team members." ASSESSMENT ASSESSMENT Assessment UTI Ureteral stones Date of Service: June 24, 2024 Billing Provider: TONI GUEVARA MD Common Visit Codes: 68103-ZYR/OBS DISCH DAY >30min TONI GUEVARA MD June 24, 2024 11:37
[2024-06-24 13:00] VITALS: BP 116/62; PULSE 66; RESP 18; TEMP 98; O2SAT 97
== END 2024-06-24 14:30 | disposition home or self-care (01) | DRG 690 ==
LOC: ER 07:33 → OVERFLOW 16:43 → WEST WING 21:30
PROVIDERS: ADMIT Hospitalist; ATTEND Hospitalist
DX: N30.01 Acute cystitis with hematuria (principal); N20.2 Calculus of kidney with calculus of ureter; N28.1 Cyst of kidney, acquired; K57.30 Diverticulosis of large intestine without perforation or abscess without bleeding; I10 Essential (primary) hypertension; E78.5 Hyperlipidemia, unspecified; F32.A Depression, unspecified; E73.9 Lactose intolerance, unspecified; K57.10 Diverticulosis of small intestine without perforation or abscess without bleeding; Z88.0 Allergy status to penicillin; Z79.899 Other long term (current) drug therapy; Z98.891 History of uterine scar from previous surgery; Z98.51 Tubal ligation status; Z99.3 Dependence on wheelchair; Z87.820 Personal history of traumatic brain injury; Z87.442 Personal history of urinary calculi
CPT/HCPCS: 36415; 74176; 76705; 80048; 80061; 81001; 82607; 82746; 83036; 84443; 85025; 87040; 87086; G0378; J1956

== ENCOUNTER 2025-01-28 16:33 | Inpatient (IN) | payer OTHER, MEDICAID ==
[~2025-01-28] VITALS: Ht 175.3 cm; Wt 129.2 kg
[~2025-01-28 16:33] MED LIST: AMLO1TAB23 PO; ATOR20TA50 PO; CHOL20007 PO; CIP500T GT; METO25TA93 PO; MULT-1018 PO; OMEG-109 PO; POTA-36 PO; QUET50TA PO; SERT-160 PO; SIME80CH49 PO; [UNRECOGNIZED DRUG - CODE] PO
--- NOTE | 2025-01-28 17:12 | ED.PDOC ---
General HPI Comments HPI: Poor Historian. 64-year-old female brought in by her sister for evaluation of urinary symptoms. He has history of multiple urinary tract infections. Lately patient has been experiencing foul odor of her urine come increased urinary frequency and cloudy urine. No abdominal pain nausea or vomiting or fever. Patient was seen by her PCP at least twice who gave her a shot of Rocephin in the office and sent her home without any oral antibiotics. Today she was seen by her PCP who advised her to go to the ER because she said no oral antibiotics will work for her based on a urine culture and sensitivity that was obtained. She was sent to the ER for IV antibiotics. 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 HEAD: Denies acute: headache, photophobia Eyes: Denies acute: Double vision, vision loss, eye pain, eye discharge. EARS: Denies acute: tinnitus, hearing loss, ear discharge, ear pain, THROAT: Denies acute: sore throat, swelling, difficulty swallowing , pain with swallowing, change in voice. NECK: Denies acute: neck pain, neck swelling, stiff neck. HEART: Denies acute : chest pain, palpitations, LUNGS: Denies acute: SOB, wheezing, cough, hemoptysis ABDOMEN: Denies acute: abdominal pain, Nausea, Vomiting, diarrhea, melena , hematemesis, hematochezia SKIN: Denies acute: rash, redness, lesions, itchiness. EXTREMITIES: Denies acute: calf pain, numbness, tingling, weakness, denies pain in extremity. Denies acute: Low back pain. Neuro: Denies acute: focal neurological deficit, motor or sensory focal neurological deficit, tremors, seizure like activity, confusion, dizziness, change in mental status, loss of bowel or bladder function, cauda equina like symptoms. : Denies acute: flank pain, PSYCH: Denies acute: hallucination, suicidal ideation, homicidal ideation. FEMALE: Denies acute: abnormal vaginal bleeding, foul odor, unusual discharge. PHYSICAL EXAM: General: ----mild----acute distress, awake and alert. Head: normocephalic, atraumatic. No raccoon's eyes, no rodriguez sign. Neck: supple, trachea is midline, no swelling. Throat: Normal phonation. Eyes:, no erythema, no purulent discharge, no proptosis, no icterus. Heart: regular rate, regular rhythm, no significant murmur appreciated. Lungs: no apparent respiratory distress, Able to speak in full sentences. No wheezing, no rhonchi, no crackles. No stridors Clear to auscultation bilaterally. Abdomen: non tender to palpation, non distended, soft, no guarding, no rebound, + bowel sounds. Neuro: Awake, Alert, oriented to name, follows commands. At baseline with traumatic brain injury per sister at bedside. The patient is wheelchair bound History of right-sided deficit Skin: no petechia, no purpura, no cyanosis, non-pale, not jaundice. Lower extremities: --no - Pitting edema no deformity, no focal swelling, no calf TTP. Makes eye contact. ED COURSE: DISCLAIMER: This medical document was created using an electronic medical record system with voice recognition software and computerized dictation system. Although this document has been carefully reviewed, there might still be some phonetic and typographical errors. Occasional wrong-word or "sound-alike" substitutions may have occurred due to the inherent limitations of voice recognition software. These areas are purely typographical due to imperfections of the software programs and do not reflect any compromise in the patient's medical care. Please read the chart carefully and recognize, using context, where these substitutions have occurred. Chief Complaint: Urinary Time Seen by MD: 16:45 Reviewed notes: Allergies Allergies: Coded Allergies: Penicillins (Verified Allergy, Unknown, 03/28/24) Home Meds Active Scripts Ciprofloxacin Hydrochloride (Ciprofloxacin HCl) 500 Mg Tab, 500 MG GT BID for 5 Days, #10 TAB Prov:TONI GUEVARA MD 06/24/24 Reported Medications Mannose (Azo D-Mannose) 500 Mg Cap, 500 MG PO, CAP 06/22/24 Potassium Chloride (POTASSIUM CHLORIDE CR) 10 Meq Tb, 1 TAB PO DAILY, #30 TAB 5 Refills 06/22/24 Simethicone (Simethicone) 80 Mg Chw, 2 TAB PO UD, #2 TAB 06/22/24 Cholecalciferol (VITAMIN D3) 2,000 Unit Tab, 1 TAB PO DAILY, #30 TAB 5 Refills 06/22/24 [place] 3 Fatty Qdemu-[id number]-Fae (Megared Advanced Total Alessio 375 mg) 1 Cap Cap, 1 CAP PO, CAP 06/22/24 Atorvastatin Calcium (ATORVASTATIN CALCIUM) 20 Mg Tab, 1 TAB PO DAILY, #30 TAB 5 Refills 06/22/24 Multiple Vitamin (Multivitamins) Tab, 1 TAB PO DAILY, #90 TAB 3 Refills 06/22/24 Quetiapine Fumerate (Seroquel) 50 Mg Tab, 1 TAB PO QPM, #30 TAB 2 Refills 06/22/24 Metoprolol Succinate (Metoprolol Succinate Er) 25 Mg Tab, 1 TAB PO DAILY, #30 TAB 5 Refills 06/22/24 Sertraline Hcl (Sertraline Hcl) 100 Mg Tab, 1 TAB PO DAILY, #90 TAB 1 Refill 06/22/24 Amlodipine Besylate (Amlodipine Besylate) 10 Mg Tab, 1 TAB PO DAILY, #30 TAB 5 Refills 06/22/24 Information Source: Patient, Relative Mode of Arrival: Wheelchair Past Medical History PAST MEDICAL HISTORY: Depression, High Lipids, HTN, Kidney Stones, UTI'S Family History Family History: Unknown Social History Smoker: Non-Smoker Alcohol: Denies ETOH Use Drugs: Denies Drug Use Lives In: Home, Assisted Care Was a procedure done? Was a procedure done?: No Differential Diagnosis Kidney stone (Female): N/A Urinary Problem (Female): PID, Pyelonephritis, Urinary retention, Urolithiasis, UTI Other Differential Diagnosis Sepsis X-Ray, Labs, Meds, VS Vital Signs Date Time Temp Pulse Resp B/P (MAP) Pulse Ox O2 Delivery O2 Flow Rate FiO2 01/28/25 16:38 98.2 78 18 159/79 97 98.2 Lab Test 01/28/25 18:08 01/28/25 17:30 Range/Units White Blood Count 6.5 4.4-10.8 10^3/uL Red Blood Count 4.27 4.0-5.20 10^6/uL Hemoglobin 12.7 12.2-16.2 g/dL Hematocrit 38.4 36.0-46.0 % Mean Corpuscular Volume 89.8 80.0-100.0 fL Mean Corpuscular Hemoglobin 29.7 28.0-32.0 pg Mean Corpuscular Hemoglobin Concent 33.0 32.0-36.0 g/dL Red Cell Distribution Width 14.5 H 11.8-14.3 % Platelet Count 232 140-450 10^3/uL Mean Platelet Volume 7.8 6.9-10.8 fL Neutrophils (%) (Auto) 66.4 37.0-80.0 % Lymphocytes (%) (Auto) 20.5 10.0-50.0 % Monocytes (%) (Auto) 7.6 0.0-12.0 % Eosinophils (%) (Auto) 4.4 0.0-7.0 % Basophils (%) (Auto) 1.1 0.0-2.0 % Neutrophils # (Auto) 4.3 1.6-8.6 10 ^3/uL Lymphocytes # (Auto) 1.3 0.4-5.4 10 ^3/uL Monocytes # (Auto) 0.5 0-1.3 10 ^3/uL Eosinophils # (Auto) 0.3 0-0.8 10 ^3/uL Basophils # (Auto) 0.1 0-0.2 10 ^3/uL Nucleated Red Blood Cells 0.1 % Sodium Level 144 136-145 mmol/L Potassium Level 3.8 3.5-5.1 mmol/L Chloride Level 108 H 98-107 mmol/L Carbon Dioxide Level 25 20-31 mmol/L Anion Gap 11 5-15 Blood Urea Nitrogen 16 9-23 mg/dL Creatinine 1.06 H 0.550-1.02 mg/dL Glomerular Filtration Rate Calc 58 >90 mL/min BUN/Creatinine Ratio 15.1 10.0-20.0 Serum Glucose 110 H 74-106 mg/dL Lactic Acid Level 1.1 0.4-2.0 mmol/L Calcium Level 9.6 8.7-10.4 mg/dL Total Bilirubin 0.2 0.2-1.0 mg/dL Aspartate Amino Transferase (AST) 23 13-40 U/L Alanine Aminotransferase (ALT) 30 7-40 U/L Alkaline Phosphatase 110 46-116 U/L B-Type Natriuretic Peptide Pending Total Protein 7.8 5.7-8.2 g/dL Albumin 4.2 3.2-4.8 g/dL Vitamin B12 Level Pending Vitamin D 25-Hydroxy Pending Thyroid Stimulating Hormone (TSH) 3.69 0.55-4.78 uIU/mL Urine Color Light-yellow Yellow Urine Clarity Turbid H Clear Urine pH 5.5 5.0-9.0 Urine Specific [place] 1.013 1.001-1.035 Urine Protein Negative Negative Urine Ketones Negative Negative Urine Blood 1+ H Negative /uL Urine Nitrite 1+ H Negative Urine Bilirubin Negative Negative Urine Urobilinogen Normal Negative mg/dL Urine Leukocyte Esterase 3+ Negative /uL Urine RBC 5 0 - 4 /hpf Urine Microscopic WBC 32 H 0-5 /HPF Urine Squamous Epithelial Cells Few <5 /hpf Urine Bacteria Few H None Seen /hpf Urine Mucus Few None Seen Urine Glucose Normal Normal mg/dL Time of 1ST Reevaluation: 23:04 Reevaluation 1ST: Unchanged Patient Education/Counseling: Diagnosis, Treatment Family Education/Counseling: Diagnosis, Treatment Comments MDM: patient presented with the above HPI.-urinary symptoms-----workup was initiated. patient was found with the above mentioned diagnosis. the following medications were ordered: please refer to order lists of meds and tests obtained by myself Dr. Medina. Patient ED course and VS have been stabilized. Patient has been reassessed in the ED and remained in a stable condition. Pertinent incidental findings were discussed with the patient and/or family. Patient/family voices understanding and is agreeable with plan. Patient has been observed in the ED adequate length of time to insure improvement/stability. Escalation of care considered: Consideration of escalation to observation or admission Patient failed outpatient antibiotics. Patient had a culture and sensitivity done by her PCP which shows that she can not take any oral medications she will need IV medications for her recurrent UTIs. I do not have the actual results of the culture and sensitivity. Patient was ADMITTED to the medicine team for further evaluation and treatment of their presentation. All the reports of any imaging studies that were ordered by myself were reviewed by myself. SEPSIS Sepsis Screen Date sepsis recognized/suspect: Jan 28, 2025 Time Sepsis recognized/suspect: 1640 Recent Procedure: No On Antibiotic Therapy: No Respiratory Rate >20: No Heart Rate >90: No Temp<36 C (96.8 F) or >38.3 C: No SBP <90 or MAP <65 mmHG: No New Acute Mental Status Change: No Is the patient on CPAP, BIPAP,: No Physician Orders Outsole Handler (01/28/25 ) Urine Bacterial Culture (01/28/25 17:07) Vital Signs Date Time Temp Pulse Resp B/P (MAP) Pulse Ox O2 Delivery O2 Flow Rate FiO2 01/28/25 16:38 98.2 78 18 159/79 97 98.2 Laboratory Tests Test 01/28/25 18:08 Lactic Acid Level 1.1 mmol/L (0.4-2.0) White Blood Count 6.5 10^3/uL (4.4-10.8) Departure 1 Departure Time of Disposition: 18:30 Impression: Primary Impression: UTI (urinary tract infection) Disposition: 09 ADMITTED INPATIENT Admit to: Tele Condition: Guarded Discharged With: Self Critical Care Note Critical Care Time?: No GERARDO MEDINA DO Jan 28, 2025 17:12
[2025-01-28 18:21] LABS: Hematocrit 38.4 % (36.0-46.0); Hemoglobin 12.7 g/dL (12.2-16.2); Mean Corpuscular Hemoglobin 29.7 pg (28.0-32.0); Mean Corpuscular Volume 89.8 fL (80.0-100.0); Nucleated Red Blood Cells % 0.1 %
[2025-01-28 19:02] LABS: Alanine Aminotransferase 30 U/L (7-40); Albumin 4.2 g/dL (3.2-4.8); Alkaline Phosphatase 110 U/L (46-116); Anion Gap 11 (5-15); BUN/Creatinine Ratio 15.1 (10.0-20.0); Blood Urea Nitrogen 16 mg/dL (9-23); Calcium 9.6 mg/dL (8.7-10.4); Carbon Dioxide 25 mmol/L (20-31); Potassium 3.8 mmol/L (3.5-5.1); Sodium 144 mmol/L (136-145); Total Protein 7.8 g/dL (5.7-8.2)
[2025-01-28 19:12] LABS: Bilirubin, Total 0.2 mg/dL (0.2-1.0); Chloride 108 mmol/L (98-107); Glucose 110 mg/dL (74-106)
[2025-01-28 19:26] LABS: Urine Protein, UAD Negative (Negative)
[2025-01-28] MEDS ORDERED: ACETAMINOPHEN 325 MG TAB PO PRN (21:15)
[2025-01-28] MEDS: SODIUM CHLORIDE 0.9% 1,000 ML IV SCH (21:15)
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
[2025-01-28] MEDS: METOPROLOL SUCCINATE XL 50 MG TAB PO ONE (21:30)
--- NOTE | 2025-01-28 23:04 | DVH ---
INDICATION: sob TECHNIQUE: Frontal view of the chest. COMPARISON: None FINDINGS/IMPRESSION: There is prominence of the interstitial markings. The cardiomediastinal silhouette is unremarkable. No pleural effusion or pneumothorax. No acute osseous abnormality.
[2025-01-29] VITALS (7 sets, daily range): BP systolic 123–153; BP diastolic 67–98; PULSE 57–68; RESP 14–16; TEMP 97.4–98.1; O2SAT 94–98
[2025-01-29] MEDS: CEFEPIME 1GM/50ML 50 ML IV SCH (00:52)
[2025-01-29] MEDS: ATORVASTATIN 20 MG TAB PO SCH (00:52)
[2025-01-29] MEDS: METOPROLOL SUCCINATE XL 50 MG TAB PO SCH (02:00)
[2025-01-29 07:22] LABS: Anion Gap 11 (5-15); Carbon Dioxide 25 mmol/L (20-31)
[2025-01-29 07:23] LABS: Calcium 9.4 mg/dL (8.7-10.4); Hematocrit 39.3 % (36.0-46.0); Hemoglobin 12.7 g/dL (12.2-16.2); Mean Corpuscular Hemoglobin 29.7 pg (28.0-32.0); Mean Corpuscular Volume 91.9 fL (80.0-100.0); Nucleated Red Blood Cells % 0.4 %
[2025-01-29 07:27] LABS: Chloride 110 mmol/L (98-107); Potassium 3.4 mmol/L (3.5-5.1); Sodium 146 mmol/L (136-145)
[2025-01-29 07:28] LABS: BUN/Creatinine Ratio 12.8 (10.0-20.0); Blood Urea Nitrogen 10 mg/dL (9-23); Glucose 85 mg/dL (74-106)
[2025-01-29] MEDS ORDERED: METOPROLOL SUCCINATE XL 50 MG TAB PO SCH (10:00)
[2025-01-29] MEDS: SERTRALINE HCL 50 MG TAB PO SCH (10:00)
[2025-01-29] MEDS: ENOXAPARIN SOD 40 MG/0.4 ML SYRINGE SC SCH (10:02)
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
[2025-01-30] VITALS (7 sets, daily range): BP systolic 108–151; BP diastolic 75–97; PULSE 55–81; RESP 14–18; TEMP 96.5–98.1; O2SAT 94–98
[2025-01-31 01:00] VITALS: BP 138/78; PULSE 56; RESP 19; TEMP 97.7; O2SAT 98
[2025-01-31 05:00] VITALS: BP 154/87; PULSE 57; RESP 18; TEMP 97.6; O2SAT 95
[2025-01-31 08:00] VITALS: BP 147/86; PULSE 53; RESP 16; TEMP 97.6; O2SAT 100
[2025-01-31 13:00] VITALS: BP 152/95; PULSE 75; RESP 18; TEMP 97.6; O2SAT 98
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
[2025-01-31] MEDS ORDERED: CEFP200T15 PO (14:41)
== END 2025-01-31 16:30 | disposition home or self-care (01) | DRG 689 ==
LOC: ER 16:33 → OVERFLOW 21:12 → WEST WING 23:42
PROVIDERS: ADMIT Student in an Organized Health Care Education/Training Program; ATTEND Student in an Organized Health Care Education/Training Program
DX: N30.01 Acute cystitis with hematuria (principal); N17.0 Acute kidney failure with tubular necrosis; E66.9 Obesity, unspecified; I12.9 Hypertensive chronic kidney disease with stage 1 through stage 4 chronic kidney disease, or unspecified chronic kidney disease; K76.0 Fatty (change of) liver, not elsewhere classified; F32.9 Major depressive disorder, single episode, unspecified; N18.30 Chronic kidney disease, stage 3 unspecified; Z68.34 Body mass index [BMI] 34.0-34.9, adult; K21.9 Gastro-esophageal reflux disease without esophagitis; R26.89 Other abnormalities of gait and mobility; E78.5 Hyperlipidemia, unspecified; N28.1 Cyst of kidney, acquired; Z88.0 Allergy status to penicillin; Z87.442 Personal history of urinary calculi; Z87.820 Personal history of traumatic brain injury; Z79.899 Other long term (current) drug therapy
CPT/HCPCS: 36415; 71045; 80048; 80053; 81001; 82306; 82607; 83605; 83880; 84443; 85025; 86803; 87086; G0378